=== PATIENT | female | born 1945 | race Caucasian/White ===

== ENCOUNTER → 2017-06-05 | Outpatient (CLI) | payer MEDICARE ==
[~2017-06-05] MED LIST: ASPI-555 PO; CALC-1038 PO; IBUP-2353 PO; MULT-961 PO; OMEG1CAP6 PO; SIMV40TA2 PO
== END | disposition home or self-care (01) ==
LOC: RAH 09:37
PROVIDERS: ATTEND Family Medicine
DX: R92.8 Other abnormal and inconclusive findings on diagnostic imaging of breast (principal); Z85.3 Personal history of malignant neoplasm of breast
CPT/HCPCS: 77065

== ENCOUNTER → 2018-05-26 | Outpatient (CLI) | payer MEDICARE ==
[~2018-05-26] MED LIST changes: -MULT-961 PO; +MULT-965 PO
== END | disposition home or self-care (01) ==
LOC: RAH 07:49
PROVIDERS: ATTEND Internal Medicine Medical Oncology
DX: R92.8 Other abnormal and inconclusive findings on diagnostic imaging of breast (principal); Z85.3 Personal history of malignant neoplasm of breast; Z90.11 Acquired absence of right breast and nipple
CPT/HCPCS: 77065

== ENCOUNTER 2018-10-27 15:29 | Emergency (ER) | payer MEDICARE ==
[2018-10-27 16:29] LABS: BASOPHILS % (AUTO) 0.8 % (0.0-5.0); EOSINOPHILS % (AUTO) 2.6 % (0.0-8.0); HEMATOCRIT 36.2 % (36-48); LYMPHOCYTES % (AUTO) 31.6 % (21.0-51.0); MEAN CORPUSCULAR HEMOGLOBIN 32.1 pg (27.0-33.0); MEAN CORPUSCULAR HGB CONC 34.4 g/dL (32.0-36.0); MEAN CORPUSCULAR VOLUME 93.3 fL (79-99); MONOCYTES % (AUTO) 5.7 % (3.0-13.0); NEUTROPHILS % (AUTO) 59.3 % (40.0-77.0); PLATELET COUNT (AUTO) 268 K/uL (130-400); RED BLOOD CELL COUNT(AUTO) 3.88 MIL/uL (4.00-5.50); RED CELL DISTRIBUTION WIDTH 12.2 % (11.0-15.5); WHITE BLOOD COUNT (AUTO) 6.2 K/uL (4.8-10.8)
[2018-10-27 16:41] LABS: CARBON DIOXIDE 29 mmol/L (21-32); CHLORIDE 106 mmol/L (101-111); CREATININE 0.7 mg/dL (0.5-1.5); GLOMERULAR FILTR. RATE CALC 88 mL/min (>60); GLUCOSE,RANDOM 116 mg/dL (70-105); POTASSIUM 3.6 mmol/L (3.5-5.1); SODIUM SERUM 141 mmol/L (136-145); UREA NITROGEN, BLOOD 15 mg/dL (7-18)
[2018-10-27 16:43] LABS: INR 0.93 (0.85-1.15); PARTIAL THROMBOPLASTIN TIME 25.7 SEC (26.3-35.5); PROTHROMBIN TIME 9.8 SEC (9.6-11.6)
[2018-10-27 16:51] LABS: ALANINE AMINOTRANSFERASE 23 U/L (12-78); ALBUMIN 3.7 g/dL (3.5-5.0); ASPARTATE AMINOTRANSFERASE 18 U/L (10-37); BILIRUBIN,TOTAL 0.4 mg/dL (0.2-1.0); HCG,QUANTITATIVE 3 mIU/mL (0-5); TOTAL PROTEIN, SERUM 7.2 g/dL (6.0-8.3)
[2018-10-27 16:55] LABS: CRP QUANTITATIVE < 2.00 mg/L (0.00-9.0)
[2018-10-27] MEDS ORDERED: DEXAMETHASONE SOD PHOSPHATE 4 MG/ML 1ML VIAL ONE (17:30)
[2018-10-27 18:12] LABS: ERYTHROCYTE SEDIMENTATION RATE 20 MM/HR (0-30)
== END 2018-10-27 18:59 | disposition home or self-care (01) ==
LOC: EDH 15:29
DX: M17.11 Unilateral primary osteoarthritis, right knee (principal); M19.011 Primary osteoarthritis, right shoulder; E78.00 Pure hypercholesterolemia, unspecified; Z85.3 Personal history of malignant neoplasm of breast
CPT/HCPCS: 36415; 73030; 73562; 80053; 84702; 85025; 85378; 85610; 85651; 85730; 86140; 93971; 96372; 99285; J1100

== ENCOUNTER 2019-01-30 13:57 | Inpatient (IN) | payer MEDICARE ==
[~2019-01-30] VITALS: Ht 162.6 cm; Wt 67.3 kg
[~2019-01-30 13:57] MED LIST changes: -IBUP-2353 PO; +IBUP-2784 PO
[2019-01-30 14:44] LABS: BASOPHILS % (AUTO) 0.8 % (0.0-5.0); EOSINOPHILS % (AUTO) 2.6 % (0.0-8.0); HEMATOCRIT 36.8 % (36-48); LYMPHOCYTES % (AUTO) 25.1 % (21.0-51.0); MEAN CORPUSCULAR HEMOGLOBIN 32.3 pg (27.0-33.0); MEAN CORPUSCULAR HGB CONC 34.5 g/dL (32.0-36.0); MEAN CORPUSCULAR VOLUME 93.6 fL (79-99); MONOCYTES % (AUTO) 6.6 % (3.0-13.0); NEUTROPHILS % (AUTO) 64.9 % (40.0-77.0); NUCLEATED RED BLOOD CELLS 0.1 % (0.0-0.19); PLATELET COUNT (AUTO) 271 K/uL (130-400); RED BLOOD CELL COUNT(AUTO) 3.93 MIL/uL (4.00-5.50); RED CELL DISTRIBUTION WIDTH 12.2 % (11.0-15.5); WHITE BLOOD COUNT (AUTO) 7.2 K/uL (4.8-10.8)
[2019-01-30] MEDS ORDERED: ONDANSETRON HCL 4 MG/2 ML VIAL ONE ×2 (14:49→21:59)
[2019-01-30] MEDS ORDERED: SODIUM CHLORIDE 0.9% 500ML 500 ML IV ONE (14:49)
[2019-01-30 14:52] LABS: CREATININE 0.7 mg/dL (0.5-1.5); POTASSIUM 3.9 mmol/L (3.5-5.1)
[2019-01-30 14:55] LABS: INR 0.97 (0.85-1.15); PARTIAL THROMBOPLASTIN TIME 25.2 SEC (26.3-35.5); PROTHROMBIN TIME 10.2 SEC (9.6-11.6)
[2019-01-30 14:56] LABS: ALBUMIN 3.8 g/dL (3.5-5.0); BILIRUBIN,DIRECT 0.2 mg/dL (0.0-0.3); BILIRUBIN,TOTAL 0.7 mg/dL (0.2-1.0); TOTAL PROTEIN, SERUM 7.5 g/dL (6.0-8.3)
[2019-01-30] MEDS ORDERED: SODIUM CHLORIDE 0.9% 1000ML 1,000 ML IV ONE (16:43)
[2019-01-30 18:19] LABS: APPEARANCE,URINE Clear (CLEAR); BILIRUBIN,URINE Negative (NEGATIVE); COLOR,URINE Yellow (YELLOW); GLUCOSE, URINE (UA) Negative (NEGATIVE); KETONES,URINE Negative (NEGATIVE); LEUKOCYTE ESTERASE ,URINE Negative (NEGATIVE); NITRATE,URINE Negative (NEGATIVE); OCCULT BLOOD,URINE Negative (NEGATIVE); PROTEIN,URINE Negative (NEGATIVE); UROBILINOGEN,URINE 0.2 mg/dL (0.2-1.0)
[2019-01-30] MEDS: SODIUM CHLORIDE 0.9% 1000ML 1,000 ML IV SCH (18:31)
[2019-01-30] MEDS ORDERED: HYDRALAZINE HCL 20 MG/ML VIAL IV PRN (18:45)
[2019-01-30 20:43] VITALS: BP 135/77
[2019-01-30] MEDS ORDERED: FAMOTIDINE/PF 20 MG/2 ML VIAL IV SCH (21:00)
[2019-01-30] MEDS ORDERED: PANTOPRAZOLE 40 MG/VIAL IVP SCH (21:00)
[2019-01-30] MEDS ORDERED: KETOROLAC TROMETHAMINE 30MG/ML IV PRN (22:00)
[2019-01-30] MEDS ORDERED: ONDANSETRON HCL 4 MG/2 ML VIAL IVP PRN (22:00)
[2019-01-30 23:00] VITALS: BP 113/79
[2019-01-31] VITALS (19 sets, daily range): BP systolic 107–175; BP diastolic 51–88
[2019-01-31] MEDS: SODIUM CHLORIDE 0.9% 1000ML 1,000 ML IV SCH ×2 (03:34→14:31)
[2019-01-31 05:33] LABS: BASOPHILS % (AUTO) 0.9 % (0.0-5.0); EOSINOPHILS % (AUTO) 3.4 % (0.0-8.0); HEMATOCRIT 35.7 % (36-48); LYMPHOCYTES % (AUTO) 35.5 % (21.0-51.0); MEAN CORPUSCULAR HEMOGLOBIN 31.6 pg (27.0-33.0); MEAN CORPUSCULAR VOLUME 92.9 fL (79-99); MONOCYTES % (AUTO) 7.8 % (3.0-13.0); NEUTROPHILS % (AUTO) 52.4 % (40.0-77.0); PLATELET COUNT (AUTO) 304 K/uL (130-400); RED BLOOD CELL COUNT(AUTO) 3.85 MIL/uL (4.00-5.50); RED CELL DISTRIBUTION WIDTH 12.3 % (11.0-15.5); WHITE BLOOD COUNT (AUTO) 6.3 K/uL (4.8-10.8)
[2019-01-31 06:11] LABS: ALBUMIN 3.7 g/dL (3.5-5.0); BILIRUBIN,TOTAL 1.2 mg/dL (0.2-1.0); CREATININE 0.7 mg/dL (0.5-1.5); POTASSIUM 3.6 mmol/L (3.5-5.1); TOTAL PROTEIN, SERUM 7.3 g/dL (6.0-8.3)
[2019-01-31] MEDS ORDERED: FAMOTIDINE/PF 20 MG/2 ML VIAL IV SCH (09:00)
--- NOTE | 2019-01-31 11:00 | NUR ---
TO . GI LAB, WITH STAFF AT THE BEDSIDE. PT HAD BEEN NPO FOR THIS PROCEDURE.
[2019-01-31] MEDS ORDERED: MEPERIDINE-PF 50 MG/ML SYG ONE (11:07)
[2019-01-31] MEDS ORDERED: MIDAZOLAM HCL 1 MG/ML 2ML VIAL ONE (11:08)
--- NOTE | 2019-01-31 12:30 | NUR ---
POSTOP V/S STARTED , . PT AAO X 3 REVIEW ORDERS AND FULL LIQ DIET ORDER . AND CALL LIGHT IN REACH .,DENIES ANY NAUSEA. HOB U.P AND AT THE BEDSIDE ..
--- NOTE | 2019-01-31 15:00 | NUR ---
INITIAL: Met w pt and spouse this afternoon to discuss dcp. Prior to admission pt was living w spouse. She is independent w ambulation. She has a nebulizer avail if needed. Per pt she feels safe and comfortable to return home at wa. CM to continue to follow and wait for Md recommendations. Addendum: 01/31/19 at 1837 by TRISTIN AVALOS Amended: Links added.
--- NOTE | 2019-01-31 15:44 | NUR ---
RD Notification Pt admitted for Dysphagia to Solids & Liquids. Pt with Hx of Esophageal mass, as well as dilatation. Currently pending [employer] evaluation. Pt with Nausea as per EMR. RD recommend altered means of nutrition upon [employer] evaluation. Pt LBM 01/30/19. Pt monitored labs: T. Bili 1.2, Lipase 99. RD to continue to monitor. Please notify RD as additional nutrition concerns arise. Thank you. Addendum: 01/31/19 at [address] RD Amended: Links added.
[2019-01-31] MEDS ORDERED: PANT40TA25 PO (16:25)
--- NOTE | 2019-01-31 18:20 | NUR ---
DISCHARGE SUMMARY RE VEIW WITH PT. REGARDING. . DISCHARGE ORDERS AND FOLLOWUP CARE SL TO HER LAC ,WAS DC WITH NO HEMATOMA . OR DRSG APPLICATION ON . TOLERATE WELL
== END 2019-01-31 18:25 | disposition home or self-care (01) | DRG 392 ==
LOC: EDH 13:57 → 3DH 18:32
PROVIDERS: ADMIT Internal Medicine; ATTEND Internal Medicine
PROC: 0DB38ZX Excision of Lower Esophagus, Via Natural or Artificial Opening Endoscopic, Diagnostic (ICD-10-PCS; principal; 2019-01-31)
PROC: 0DB68ZX Excision of Stomach, Via Natural or Artificial Opening Endoscopic, Diagnostic (ICD-10-PCS; 2019-01-31)
PROC: 0DB28ZX Excision of Middle Esophagus, Via Natural or Artificial Opening Endoscopic, Diagnostic (ICD-10-PCS; 2019-01-31)
PROC: 0DC28ZZ Extirpation of Matter from Middle Esophagus, Via Natural or Artificial Opening Endoscopic (ICD-10-PCS; 2019-01-31)
DX: K22.2 Esophageal obstruction (principal); T18.128A Food in esophagus causing other injury, initial encounter; K29.50 Unspecified chronic gastritis without bleeding; I10 Essential (primary) hypertension; K29.70 Gastritis, unspecified, without bleeding; Z85.3 Personal history of malignant neoplasm of breast; Y92.89 Other specified places as the place of occurrence of the external cause; Z98.82 Breast implant status; Z83.3 Family history of diabetes mellitus; Z82.5 Family history of asthma and other chronic lower respiratory diseases; Z82.49 Family history of ischemic heart disease and other diseases of the circulatory system; Z82.0 Family history of epilepsy and other diseases of the nervous system; Z80.3 Family history of malignant neoplasm of breast
CPT/HCPCS: 36415; 43239; 43247; 71250; 80048; 80053; 80076; 81003; 82550; 83690; 84484; 85025; 85610; 85730; 93005; 99152; 99153; C9113; G0378; J1885; J2175; J2250; J2405; J3490; J7030; J7040

== ENCOUNTER → 2019-05-27 | Outpatient (CLI) | payer MEDICARE ==
[~2019-05-27] MED LIST changes: -ASPI-555 PO; -CALC-1038 PO; -IBUP-2784 PO; -MULT-965 PO; -OMEG1CAP6 PO; +PANT40TA25 PO; -SIMV40TA2 PO
== END | disposition home or self-care (01) ==
LOC: RAH 07:41
PROVIDERS: ATTEND Family Medicine
DX: R92.2 Inconclusive mammogram (principal); Z85.3 Personal history of malignant neoplasm of breast; Z90.11 Acquired absence of right breast and nipple
CPT/HCPCS: 77065

== ENCOUNTER 2019-06-02 16:00 | Inpatient (IN) | payer MEDICARE ==
[~2019-06-02] VITALS: Ht 165.1 cm; Wt 68.9 kg
[2019-06-02 15:54] VITALS: BP 138/56
[2019-06-02 15:59] LABS: BASOPHILS % (AUTO) 0.7 % (0.0-5.0); EOSINOPHILS % (AUTO) 2.3 % (0.0-8.0); HEMATOCRIT 36.2 % (36-48); LYMPHOCYTES % (AUTO) 34.3 % (21.0-51.0); MEAN CORPUSCULAR HEMOGLOBIN 30.8 pg (27.0-33.0); MEAN CORPUSCULAR HGB CONC 33.1 g/dL (32.0-36.0); MEAN CORPUSCULAR VOLUME 93.1 fL (79-99); MONOCYTES % (AUTO) 6.9 % (3.0-13.0); NEUTROPHILS % (AUTO) 55.5 % (40.0-77.0); PLATELET COUNT (AUTO) 280 K/uL (130-400); RED BLOOD CELL COUNT(AUTO) 3.89 MIL/uL (4.00-5.50); RED CELL DISTRIBUTION WIDTH 12.2 % (11.0-15.5); WHITE BLOOD COUNT (AUTO) 6.9 K/uL (4.8-10.8)
[2019-06-02] MEDS ORDERED: SIMV40TA59 PO (16:16)
[2019-06-02] MEDS ORDERED: CALC-909 PO (16:17)
[2019-06-08] VITALS (22 sets, daily range): BP systolic 54–142; BP diastolic 52–86
[2019-06-08] MEDS: CEFAZOLIN SODIUM 1 GM VIAL IVP SCH ×3 (09:30→20:35)
[2019-06-08] MEDS ORDERED: LACTATED RINGERS 1000ML 1,000 ML IV ONE (09:40)
[2019-06-08] MEDS ORDERED: TRANEXAMIC ACID 1000MG/10ML ONE (09:53)
[2019-06-08] MEDS ORDERED: MIDAZOLAM HCL 1 MG/ML 2ML VIAL ONE (11:28)
[2019-06-08] MEDS ORDERED: DEXAMETHASONE SOD PHOSPHATE 10MG/ML 1ML VIAL ONE (11:28)
[2019-06-08] MEDS ORDERED: ONDANSETRON HCL 4 MG/2 ML VIAL ONE (11:28)
[2019-06-08] MEDS ORDERED: PROPOFOL 10 MG/ML 20ML VIAL IV ONE (11:28)
[2019-06-08] MEDS ORDERED: LIDOCAINE PF 2% 5ML ABBOJECT ONE (11:28)
[2019-06-08] MEDS ORDERED: FENTANYL CITRATE PF 50 MCG/1 ML 5ML AMP IV ONE (11:29)
[2019-06-08] MEDS ORDERED: ROCURONIUM 10MG/1ML SYR 10 MG/ML ML ONE (11:29)
[2019-06-08] MEDS ORDERED: ROPIVACAINE 0.5% 5MG/ML 30ML IJ ONE (11:32)
[2019-06-08] MEDS ORDERED: EPHEDRINE SULFATE 50 MG/ML AMPULE ONE (11:52)
[2019-06-08] MEDS ORDERED: GLYCOPYRROLATE 1 MG/5 ML SYRINGE ONE (13:31)
[2019-06-08] MEDS ORDERED: NEOSTIGMINE 5MG/5ML SYR IV ONE (13:31)
[2019-06-08] MEDS: SODIUM CHLORIDE 0.9% 1000ML 1,000 ML IV SCH ×2 (13:44→23:31)
[2019-06-08] MEDS: ACETAMINOPHEN EXTRA STRENGTH 500 MG TABLET PO SCH ×2 (13:45→20:34)
[2019-06-08] MEDS ORDERED: TRAMADOL HCL 50 MG TABLET PO PRN (13:45)
[2019-06-08] MEDS ORDERED: MORPHINE SULFATE 4 MG/1ML SYG IVP PRN (13:45)
[2019-06-08] MEDS ORDERED: ONDANSETRON HCL 4 MG/2 ML VIAL IVP PRN (13:45)
--- NOTE | 2019-06-08 14:50 | NUR ---
REPORT RECEIVED FROM CHRIS RN (PACU). PATIENT S/P RIGHT TKA BY DR. PEPE. GENERAL ANESTHESIA WITH BLOCK. DIEGO DRESSING DRY AND INTACT. TEDS/SCDS ON TO NON-OPERATIVE EXTREMITY. RIGHT LIMB ALERT DUE TO RIGHT MASTECTOMY. PATIENT AAOX3, STABLE AT THIS TIME.
--- NOTE | 2019-06-08 16:30 | NUR ---
CALL TO MD OFFICE SPOKE WITH ERIKA- NOTES ON FILE STATES MD OFFICE HAS SET UP OUT PATIENT REHAB WITH [facility], 'SAME LAST SURGERY' SHE DID NOT HAVE AN APPOINTMENT YET. WILL FOLLOW WITH PT IN AM RE BHARAT TO SENT OPERATIVE INFO. Addendum: 06/09/19 at 1449 by JANET RAMEY RN CM Amended: Links added.
[2019-06-08] MEDS: CELECOXIB 200 MG CAP PO SCH (20:33)
[2019-06-08] MEDS: SIMVASTATIN 20 MG TABLET PO SCH (20:33)
[2019-06-08] MEDS: ASPIRIN 81 MG EC TAB PO SCH (20:33)
--- NOTE | 2019-06-08 21:08 | NUR ---
ACTIVITY PT SAT ON EDGE OF BED AND DANGLED FEET FOR A COUPLE OF MINUTES. CONTINUES TO FEEL THE EFFECTS OF THE NERVE BLOCK TO THE RIGHT LEG, NO C/O PAIN AT THIS TIME. WILL CONTINUE TO MONITOR.
[2019-06-09] VITALS (8 sets, daily range): BP systolic 79–120; BP diastolic 47–62
[2019-06-09] MEDS: OXYCODONE HCL 5 MG TAB PO PRN ×4 (02:24→23:26)
[2019-06-09] MEDS: ACETAMINOPHEN EXTRA STRENGTH 500 MG TABLET PO SCH ×3 (03:57→19:44)
[2019-06-09] MEDS: CEFAZOLIN SODIUM 1 GM VIAL IVP SCH (03:57)
[2019-06-09 05:07] LABS: HEMATOCRIT 26.7 % (36-48); MEAN CORPUSCULAR HEMOGLOBIN 30.6 pg (27.0-33.0); MEAN CORPUSCULAR HGB CONC 33.3 g/dL (32.0-36.0); MEAN CORPUSCULAR VOLUME 91.8 fL (79-99); PLATELET COUNT (AUTO) 183 K/uL (130-400); RED BLOOD CELL COUNT(AUTO) 2.91 MIL/uL (4.00-5.50); RED CELL DISTRIBUTION WIDTH 12.3 % (11.0-15.5); WHITE BLOOD COUNT (AUTO) 8.4 K/uL (4.8-10.8)
[2019-06-09 05:26] LABS: CREATININE 0.6 mg/dL (0.5-1.5); POTASSIUM 3.3 mmol/L (3.5-5.1)
--- NOTE | 2019-06-09 08:43 | NUR ---
Limited gait distance this AM due to feeling nauseated.BP is at 79/44. Patient was placed back in bed and re-check BP is at 103/55.KAYCE Gilmore notified. Addendum: 06/09/19 at 0845 by DWAYNE PARTIDA, PT PT Amended: Links added.
[2019-06-09] MEDS: ASPIRIN 81 MG EC TAB PO SCH ×2 (08:54→19:43)
[2019-06-09] MEDS: CELECOXIB 200 MG CAP PO SCH ×2 (08:55→19:43)
[2019-06-09] MEDS: POLYETHYLENE GLYCOL 3350 17 GM POWD.PACK PO SCH (08:55)
[2019-06-09] MEDS ORDERED: CALCIUM 600 + VITAMIN D 400 TABLET PO SCH (09:00)
[2019-06-09] MEDS: SODIUM CHLORIDE 0.9% 1000ML 1,000 ML IV SCH (09:44)
[2019-06-09] MEDS ORDERED: MAGNESIUM 2GM PREMIX 50ML 50 ML IV PRN (15:15)
[2019-06-09] MEDS: POTASSIUM CHLORIDE 20 MEQ ERTAB PO PRN ×2 (16:01→23:51)
--- NOTE | 2019-06-09 17:00 | NUR ---
INITIAL CM NOTE Met w patient and spouse for the purposes of discharge planning. Lives w spouse Tripp who will provide transport home. Patient is independent, no dme, drives, has no previous problem with stairs ; bought a walker for the surgery already, spouse states patient has an appointment w [facility] on [facility]15. will follow. Dr. Woo's nurse at [facility]- pt has not been moving sell- possible of [facility]; will follow Addendum: 06/10/19 at 1158 by JANET RAMEY RN CM Amended: Links added.
[2019-06-09] MEDS: SIMVASTATIN 20 MG TABLET PO SCH (19:43)
[2019-06-10 04:01] VITALS: BP 107/53
[2019-06-10 04:28] LABS: MAGNESIUM 2.1 mg/dL (1.80-2.40); POTASSIUM 3.7 mmol/L (3.5-5.1)
[2019-06-10] MEDS: OXYCODONE HCL 5 MG TAB PO PRN ×4 (04:38→22:08)
[2019-06-10] MEDS: ACETAMINOPHEN EXTRA STRENGTH 500 MG TABLET PO SCH ×3 (04:38→19:26)
[2019-06-10] MEDS: POTASSIUM CHLORIDE 20 MEQ ERTAB PO PRN ×2 (06:35→16:36)
[2019-06-10 08:12] VITALS: BP 109/49
[2019-06-10] MEDS: CELECOXIB 200 MG CAP PO SCH ×2 (08:19→19:26)
[2019-06-10] MEDS: ASPIRIN 81 MG EC TAB PO SCH ×2 (08:19→19:26)
[2019-06-10] MEDS: POLYETHYLENE GLYCOL 3350 17 GM POWD.PACK PO SCH (08:19)
[2019-06-10 11:26] VITALS: BP 124/56
--- NOTE | 2019-06-10 15:48 | NUR ---
NOTIFIED ERIKA FROM DR. GOMEZ'S OFFICE TO NOTIFY OF PT/FAMILY REQUEST FOR REHAB AND NOT GO HOME. ERIKA SAID SHE WILL SEND MESSAGE TO [facility] TO NOTIFY. PROVIDED WITH CALL BACK NUMBER TO UPDATE WITH ANY NEW ORDERS.
[2019-06-10 16:36] VITALS: BP 101/61
[2019-06-10 19:14] VITALS: BP 135/73
[2019-06-10] MEDS: SIMVASTATIN 20 MG TABLET PO SCH (19:26)
[2019-06-10 23:29] VITALS: BP 146/66
[2019-06-11 03:38] VITALS: BP 120/60
[2019-06-11] MEDS: ACETAMINOPHEN EXTRA STRENGTH 500 MG TABLET PO SCH ×3 (05:52→19:58)
[2019-06-11 08:00] VITALS: BP 131/64
[2019-06-11] MEDS: OXYCODONE HCL 5 MG TAB PO PRN ×2 (08:15→12:24)
[2019-06-11] MEDS: CELECOXIB 200 MG CAP PO SCH ×2 (08:45→19:58)
[2019-06-11] MEDS: ASPIRIN 81 MG EC TAB PO SCH ×2 (08:45→19:58)
[2019-06-11] MEDS: POLYETHYLENE GLYCOL 3350 17 GM POWD.PACK PO SCH (08:45)
[2019-06-11 12:00] VITALS: BP 130/62
[2019-06-11] MEDS ORDERED: BISACODYL 10 MG SUPP.RECT RC PRN (13:45)
[2019-06-11 16:00] VITALS: BP 120/61
--- NOTE | 2019-06-11 19:15 | NUR ---
DISCHARGE PATIENT GIVEN DISCHARGE INSTRUCTIONS VIA TEACH BACK. 20G PIV TO LFA DISCONTINUED, TIP INTACT. PATIENT TO TRANSFER TO [facility] TODAY. REPORT GIVEN TO JAMI AGRAWAL LVN. FOLLOW UP APPOINTMENT WITH DR. GOMEZ TO BE SET UP BY [facility] POST DISCHARGE IN 1 TO 2 WEEKS. DRESSING TO RIGHT KNEE TO BE REMOVED ON 06/16/19. RX FOR PAIN MEDICATIONS GIVEN TO PATIENT PRIOR TO ADMISSION TO HOSPITAL. PATIENT'S SPOUSE TO DELIVER THE PAIN MED TRAMADOL TO [facility]. PATIENT/SPOUSE AWARE AND VOICED UNDERSTANDING. Addendum: 06/11/19 at 2008 by NEREIDA GAN LVN LVN [facility] TO TRANSPORT PATIENT TO REHAB TODAY. AWAITING TRANSPORTER. REPORT GIVEN TO KAYCE GARCIA.
[2019-06-11] MEDS: SIMVASTATIN 20 MG TABLET PO SCH (19:58)
[2019-06-11 20:12] VITALS: BP 126/64
--- NOTE | 2019-06-11 20:35 | NUR ---
DISCHARGE [facility] IN TO TAKE PT VIA WHEELCHAIR. PT AWAKE, ALERT AND VERBALLY RESPONSIVE. NO C/O PAIN OR DISCOMFORT AT THIS TIME. DIEGO DRESSING CHANGED BEFORE DISCHARGE, DRY AND INTACT. IV CATHETER DISCONTINUED BY PREVIOUS SHIFT. PAPERWORK GIVEN TO WIRE TWISTING MACHINE OPERATOR, ALL PT BELONGINGS RETURNED TO PT.
== END 2019-06-11 20:35 | DRG 470 ==
LOC: EDSTATUS 16:00 → DAHIP 06-08 09:18 → 4AH 06-08 14:14
PROVIDERS: ADMIT Orthopaedic Surgery; ATTEND Orthopaedic Surgery
PROC: 0SRC0JZ Replacement of Right Knee Joint with Synthetic Substitute, Open Approach (ICD-10-PCS; principal; 2019-06-08 12:11)
DX: M17.11 Unilateral primary osteoarthritis, right knee (principal); E83.42 Hypomagnesemia; E87.6 Hypokalemia; M65.9 Synovitis and tenosynovitis, unspecified; M24.561 Contracture, right knee; M24.562 Contracture, left knee
CPT/HCPCS: 36415; 80048; 83735; 84132; 85025; 85027; 86850; 86900; 86901; 88305; 88311; 97039; G0378; J0690; J1100; J2001; J2250; J2270; J2405; J2704; J2710; J2795; J3010; J3475; J3490; J7030; J7120

== ENCOUNTER 2019-06-16 13:29 | Emergency (ER) | payer MEDICARE ==
[~2019-06-16 13:29] MED LIST changes: +CALC-909 PO; -PANT40TA25 PO; +SIMV40TA59 PO
[2019-06-16 13:53] LABS: BASOPHILS % (AUTO) 0.6 % (0.0-5.0); EOSINOPHILS % (AUTO) 0.2 % (0.0-8.0); HEMATOCRIT 30.9 % (36-48); LYMPHOCYTES % (AUTO) 12.3 % (21.0-51.0); MEAN CORPUSCULAR HEMOGLOBIN 30.1 pg (27.0-33.0); MEAN CORPUSCULAR HGB CONC 32.7 g/dL (32.0-36.0); MONOCYTES % (AUTO) 2.3 % (3.0-13.0); NEUTROPHILS % (AUTO) 83.8 % (40.0-77.0); PLATELET COUNT (AUTO) 420 K/uL (130-400); RED BLOOD CELL COUNT(AUTO) 3.36 MIL/uL (4.00-5.50); RED CELL DISTRIBUTION WIDTH 12.5 % (11.0-15.5); WHITE BLOOD COUNT (AUTO) 8.4 K/uL (4.8-10.8)
[2019-06-16] MEDS ORDERED: KETOROLAC TROMETHAMINE 15MG/ML ONE (13:57)
[2019-06-16] MEDS ORDERED: SODIUM CHLORIDE 0.9% 1000ML 1,000 ML IV ONE (13:57)
[2019-06-16 14:03] LABS: CREATININE 0.8 mg/dL (0.5-1.5); POTASSIUM 3.8 mmol/L (3.5-5.1)
[2019-06-16 14:07] LABS: ALBUMIN 3.6 g/dL (3.5-5.0); TOTAL PROTEIN, SERUM 8.1 g/dL (6.0-8.3)
[2019-06-16] MEDS ORDERED: PROPOFOL 10 MG/ML 20ML VIAL IV ONE (14:54)
[2019-06-16] MEDS ORDERED: LIDOCAINE PF 2% 5ML ABBOJECT ONE (14:56)
[2019-06-16] MEDS ORDERED: ROCURONIUM 10MG/1ML SYR 10 MG/ML ML ONE (14:56)
== END 2019-06-16 17:31 | disposition home or self-care (01) ==
LOC: EDH 13:29
DX: K22.2 Esophageal obstruction (principal); T18.128A Food in esophagus causing other injury, initial encounter
CPT/HCPCS: 36415; 43247; 80053; 83690; 85025; 96374; 99283; A4620; J1885; J2001; J2704; J7030

== ENCOUNTER → 2020-05-29 | Outpatient (CLI) | payer MEDICARE | END | disposition home or self-care (01) | LOC: RAH 09:35 | PROVIDERS: ATTEND Family Medicine | DX: Z90.11 Acquired absence of right breast and nipple (principal); Z85.3 Personal history of malignant neoplasm of breast | CPT/HCPCS: 77065 ==

== ENCOUNTER → 2021-08-13 | Outpatient (CLI) | payer MEDICARE ==
[2021-08-13 08:36] LABS: INR 0.94 (0.85-1.15); PROTHROMBIN TIME 10.3 SEC (9.6-11.6)
[2021-08-13 08:38] LABS: PARTIAL THROMBOPLASTIN TIME 26.3 SEC (26.3-35.5)
== END | disposition home or self-care (01) ==
LOC: RAH 07:32
PROVIDERS: ATTEND Family Medicine
DX: N60.02 Solitary cyst of left breast (principal); C50.911 Malignant neoplasm of unspecified site of right female breast; Z85.3 Personal history of malignant neoplasm of breast
CPT/HCPCS: 36415; 76642; 85610; 85730

== ENCOUNTER → 2022-04-02 | Outpatient (CLI) | payer MEDICARE | END | disposition home or self-care (01) | LOC: RAH 08:46 | PROVIDERS: ATTEND Family Medicine | DX: N60.02 Solitary cyst of left breast (principal); Z85.3 Personal history of malignant neoplasm of breast | CPT/HCPCS: 77065 ==

== ENCOUNTER 2022-11-28 13:36 | Emergency (ER) | payer MEDICARE ==
[~2022-11-28] VITALS: Ht 162.6 cm; Wt 70.8 kg
[~2022-11-28 13:36] MED LIST changes: +DOCU100C33 PO; +SIMV-46 PO; -SIMV40TA59 PO; +SULF1TAB42 PO; +TRAM50TA4 PO
[2022-11-28 15:31] LABS: BASOPHILS # (AUTO) 0.04 K/uL (0.00-0.20); BASOPHILS % (AUTO) 0.7 % (0.0-5.0); EOSINOPHILS # (AUTO) 0.12 K/uL (0.00-0.70); HEMATOCRIT 38.5 % (36-48); IMMATURE GRANULOCYTE ABSOLUTE 0.02 K/uL (0-1); LYMPHOCYTES # (AUTO) 1.9 K/uL (1.0-4.8); LYMPHOCYTES % (AUTO) 31.4 % (21.0-51.0); MEAN CORPUSCULAR HEMOGLOBIN 31.6 pg (27.0-33.0); MEAN CORPUSCULAR HGB CONC 32.7 g/dL (32.0-36.0); MEAN CORPUSCULAR VOLUME 96.5 fL (79-99); MONOCYTES # (AUTO) 0.4 K/uL (0.1-1.0); MONOCYTES % (AUTO) 6.3 % (3.0-13.0); NEUTROPHILS # (AUTO) 3.6 K/uL (1.8-7.7); NEUTROPHILS % (AUTO) 59.3 % (40.0-77.0); PLATELET COUNT (AUTO) 276 K/uL (130-400); RED BLOOD CELL COUNT(AUTO) 3.99 MIL/uL (4.00-5.50); RED CELL DISTRIBUTION WIDTH 12.3 % (11.0-15.5)
[2022-11-28 15:41] LABS: INR < 0.93 (0.85-1.15); PROTHROMBIN TIME 10.6 SEC (9.6-11.6)
[2022-11-28 15:43] LABS: PARTIAL THROMBOPLASTIN TIME 26.8 SEC (26.3-35.5)
[2022-11-28 15:46] LABS: ALBUMIN 3.9 g/dL (3.5-5.0); BILIRUBIN,TOTAL 0.7 mg/dL (0.2-1.0); CREATININE 0.7 mg/dL (0.5-1.5); POTASSIUM 3.8 mmol/L (3.5-5.1)
[2022-11-28] MEDS ORDERED: METOCLOPRAMIDE 10 MG/2 ML VIAL IVP STA (16:00)
[2022-11-28] MEDS ORDERED: LIDOCAINE PF 100MG/5ML (2%) SYRINGE 5ML ONE (16:16)
[2022-11-28] MEDS ORDERED: SUCCINYLCHOLINE CHLORIDE 20 MG/ML 10 ML VIAL ONE (16:16)
[2022-11-28] MEDS ORDERED: PROPOFOL 10 MG/ML 20ML VIAL IV ONE (16:17)
[2022-11-28] MEDS ORDERED: FENTANYL CITRATE PF 50 MCG/1 ML 2ML VIAL ONE ×2 (16:17→16:57)
[2022-11-28] MEDS ORDERED: CEFAZOLIN SODIUM 1 GM VIAL ONE (16:19)
[2022-11-28 16:20] VITALS: BP 170/75; PULSE 87; RESP 20
[2022-11-28] MEDS ORDERED: DEXAMETHASONE SOD PHOSPHATE 10MG/ML 1ML VIAL ONE (16:53)
[2022-11-28] MEDS ORDERED: ONDANSETRON 4MG INJ ONE (16:53)
[2022-11-28 17:44] VITALS: BP 147/69; PULSE 76; RESP 17; O2SAT 96
== END 2022-11-28 18:15 | disposition home or self-care (01) ==
LOC: EDH 13:36
DX: T18.108A Unspecified foreign body in esophagus causing other injury, initial encounter (principal); E78.00 Pure hypercholesterolemia, unspecified; Z79.52 Long term (current) use of systemic steroids; X58.XXXA Exposure to other specified factors, initial encounter; Y93.9 Activity, unspecified; Y92.89 Other specified places as the place of occurrence of the external cause; Y99.8 Other external cause status
CPT/HCPCS: 99284; 80053; 85025; 85610; 85730; 36415; 88305; 96374; 43239; 43247; J3010 ×2; J1100; J0330; J2001; J2704; J2405; J2765; A4215 ×2; A4223; A4657 ×3; A7002; A4222; A4221; A4663; A4216; J7030; A4606; J0690; J3490

== ENCOUNTER → 2023-04-03 | Outpatient (CLI) | payer MEDICARE | END | disposition home or self-care (01) | LOC: RAH 08:36 | PROVIDERS: ATTEND Family Medicine | DX: Z12.31 Encounter for screening mammogram for malignant neoplasm of breast (principal); Z85.3 Personal history of malignant neoplasm of breast; R92.332 Mammographic heterogeneous density, left breast | CPT/HCPCS: 76641; 77065 ==

== ENCOUNTER → 2023-10-03 | Outpatient (CLI) | payer MEDICARE | END | disposition home or self-care (01) | LOC: RAH 12:42 | PROVIDERS: ATTEND Family Medicine | DX: N63.24 Unspecified lump in the left breast, lower inner quadrant (principal); Z85.3 Personal history of malignant neoplasm of breast | CPT/HCPCS: 76641 ==

== ENCOUNTER → 2023-10-21 | Outpatient (CLI) | payer MEDICARE ==
[2023-10-21 08:28] LABS: INR 0.98 (0.85-1.15); PROTHROMBIN TIME 10.6 SEC (9.6-11.6)
[2023-10-21 08:29] LABS: PARTIAL THROMBOPLASTIN TIME 25.3 SEC (26.3-35.5)
== END | disposition home or self-care (01) ==
LOC: RAH 07:40
PROVIDERS: ATTEND Family Medicine
DX: N63.25 Unspecified lump in the left breast, overlapping quadrants (principal); E78.5 Hyperlipidemia, unspecified; M81.0 Age-related osteoporosis without current pathological fracture; M17.0 Bilateral primary osteoarthritis of knee; Z96.651 Presence of right artificial knee joint; Z79.899 Other long term (current) drug therapy; Z79.01 Long term (current) use of anticoagulants
CPT/HCPCS: 19083; 85610; 85730; 36415; 88305; A4215 ×2; A4648

== ENCOUNTER → 2024-09-07 | Outpatient (CLI) | payer MEDICARE ==
--- NOTE | 2024-09-08 09:38 | HMCIMG ---
Exam Type: MAMMO DX UNILATERAL LEFT Clinical Information: HX OF BREAST CA Comparison: None Technique: Mammogram with CAD was performed with CC and MLO projections. CAD shows no worrisome regions. FINDINGS: The breasts are extremely dense, which lowers the sensitivity of mammography. No dominant mass or suspicious microcalcification identified. There is no nipple retraction or skin thickening. Benign-appearing calcifications are seen. CAD shows no worrisome regions. IMPRESSION: 1. No mammographic signs of malignancy. 2. Routine follow-up recommended. CATEGORY 2: BENIGN FINDINGS Note: A negative x-ray should not delay biopsy if a dominant or clinically suspicious mass is present, since 8-10% of cancers are not identified by mammography. Dense breasts may obscure an underlying neoplasm. March 31, 2023
== END | disposition home or self-care (01) ==
LOC: RAH 10:32
PROVIDERS: ATTEND Family Medicine
DX: R92.342 Mammographic extreme density, left breast (principal); R92.1 Mammographic calcification found on diagnostic imaging of breast; Z85.3 Personal history of malignant neoplasm of breast
CPT/HCPCS: 77065

== ENCOUNTER 2024-11-15 15:31 | Emergency (ER) | payer MEDICARE ==
[~2024-11-15] VITALS: Ht 162.6 cm; Wt 68.0 kg
[2024-11-15 15:32] VITALS: TEMP 98.3
[2024-11-15 16:10] LABS: IMMATURE GRANULOCYTE ABSOLUTE 0.04 K/uL (0-1); NUCLEATED RED BLOOD CELLS 0.0 % (0.0-0.19); PLATELET COUNT (AUTO) 295 K/uL (130-400); RED BLOOD CELL COUNT(AUTO) 3.53 MIL/uL (4.00-5.50); RED CELL DISTRIBUTION WIDTH 12.4 % (11.0-15.5); WHITE BLOOD COUNT (AUTO) 10.4 K/uL (4.8-10.8)
[2024-11-15 16:18] LABS: CREATININE 0.6 mg/dL (0.5-1.0); GLOMERULAR FILTR. RATE CALC 92.0 mL/min (>90); GLUCOSE,RANDOM 121.0 mg/dL (70-105); SODIUM SERUM 141.0 mmol/L (136-145); UREA NITROGEN, BLOOD 11.0 mg/dL (7-18)
[2024-11-15] MEDS ORDERED: DOCU-116 PO (16:34)
[2024-11-15] MEDS ORDERED: HYDR25SU38 PR (16:34)
--- NOTE | 2024-11-15 16:36 | ERN ---
ED Note History of Present Illness Stated Complaint: ABD CRAMPING, BLOODY STOOLS Chief Complaint: Bloody Stool Time Seen by MD: 15:32 Time Seen by Midlevel: 15:36 Dictation: 59-YEAR-OLD FEMALE COMING IN FOR BLOOD IN STOOLS. PATIENT STATES SHE HAD A LA RGE BOWEL MOVEMENT THIS MORNING, AFTER THAT SHE SAID WHEN SHE WENT TO HAVE ANOTHER BOWEL MOVEMENT SHE FEELS LIKE WATER IS COMING OUT OF THE RECTAL. PATIENT STATES IT IS BLOOD. PATIENT STATES SHE DOES HAVE A HISTORY OF HEMORRHOIDS SINCE HE IS A GI FOR THIS AND ALSO HAD A COLONOSCOPY DONE TWO YEARS AGO WHERE THEY UPON A FEW POLYPS. Allergies: Coded Allergies: No Known Drug Allergies (Unverified Allergy, Unknown, 06/28/16) gluten (Unverified Allergy, Unknown, 06/02/19) lactose (Unverified Allergy, Unknown, 06/02/19) Home Meds Active Scripts Sulfamethoxazole/Trimethoprim (Bactrim Ds Tablet) 1 Each Tablet, 1 TAB PO BID, #14 TAB 0 Refills Prov:ADEBAYO DOVE 09/12/22 Docusate Sodium (Docusate Sodium) 100 Mg Capsule, 100 MG PO BID, #30 CAP 0 Refills Prov:ADEBAYO DOVEANAM 09/12/22 Tramadol Hcl (Tramadol HCl) 50 Mg Tablet, 50 MG PO Q6HPRN PRN for MODERATE PAIN (4-6), #24 TAB 0 Refills Prov:DERRELLADEBAYOLAYNE BROWNANAM 09/12/22 Reported Medications Simvastatin (Simvastatin) 40 Mg Tablet, 40 MG PO HS, TAB 09/11/22 Calcium Carbonate/Vitamin D3 (Calcium 600 + Vit D Caplet) 1 Each Tablet, 1 EACH PO DAILY, TAB 06/02/19 Past Medical History Past Medical History: High Cholesterol Additional Past Medical Hx: ESOPHAGEAL OBSTRUCTION, HPYLORI Surgical History: Other Surgical History Other: right mastectomy Family History: Negative Social History: Negative, Lives with family Review of System Dictation CONSTITUTIONAL: NEGATIVE FOR FEVER,CHILLS, AND WEIGHT LOSS EYES: NEGATIVE FOR INJURY, PAIN,REDNESS, AND DISCHARGE ENT: NEGATIVE FOR INJURY,PAIN OR SWELLING CARDIOVASCULAR: NEGATIVE FOR CHEST PAIN, PALPITATIONS, AND EDEMA RESPIRATORY: NEGATIVE FOR SHORTNESS OF BREATH, COUGH, AND WHEEZING, ABDOMEN/GI: NEGATIVE FOR ABDOMINAL PAIN, NAUSEA, VOMITING, DIARRHEA, AND CONSTIPATION, COMPLAINING OF BLOOD IN STOOL BACK: NEGATIVE FOR INJURY AND PAIN : NEGATIVE FOR INJURY, BLEEDING AND DISCHARGE MS/EXTREMITY: NEGATIVE FOR INJURY AND DEFORMITY SKIN: NEGATIVE FOR RASH, AND DISCOLORATION NEURO: NEGATIVE FOR HEADACHE, WEAKNESS, NUMBNESS, TINGLING, AND SEIZURE PSYCH: NEGATIVE FOR SUICIDE IDEATION, HOMICIDAL IDEATION, AND HALLUCINATIONS Review of Systems: was completed Initial Vital Sign VS Vital Signs Date Time Temp Pulse Resp B/P (MAP) Pulse Ox O2 Delivery O2 Flow Rate FiO2 11/15/24 15:32 98.2 84 16 152/78 95 Room Air 0 Physical Exam Dictation GENERAL: AWAKE, ALERT, NAD HEAD/FACE: NORMOCEPHALIC, ATRAUMATIC EYES: PERRL, EOMI, VISION AT BASELINE ENT: ORAL CAVITY CLEAR, TMS CLEAR, NO SIGNS OF INFECTION NECK: TRACHEA MIDLINE, SUPPLE, NO NUCHAL RIGIDITY CARDIOVASCULAR: RRR, NORMAL S1/S2, NO MRGS, NO JVD RESPIRATORY: CTAB, NO RESPIRATORY DISTRESS, NO RALES OR WHEEZES ABDOMEN: SOFT, NON-TENDER, NON-DISTENDED, NORMAL BOWEL SOUNDS, NO GUARDING OR REBOUND. SKIN: WARM, DRY, NORMAL TURGOR, NO RASH MS/EXTREMITY: PULSES EQUAL, NO CYANOSIS, NEUROVASCULAR INTACT, FROM NEURO: COAX4, GCS 15, STRENGTH 5/5, CN 2-12 INTACT, NORMAL CEREBELLAR EXAM, NORMAL GAIT, PSYCH: NORMAL BEHAVIOR, MOOD, AND AFFECT NORMAL RECTAL EXAM DONE WITH PRIMARY NURSE, AND ER MD AT BEDSIDE. LARGE INTERNAL HEMORRHOID, NONTHROMBOSED. Results (Laboratory/Radiology) Laboratory/Radiology Laboratory Tests Test 11/15/24 16:02 White Blood Count 10.4 K/uL (4.8-10.8) Red Blood Count 3.53 MIL/uL (4.00-5.50) L Hemoglobin 11.6 g/dL (12.0-16.0) L Hematocrit 33.4 % (36-48) L Mean Corpuscular Volume 94.6 fL (79-99) Mean Corpuscular Hemoglobin 32.9 pg (27.0-33.0) Mean Corpuscular Hemoglobin Concent 34.7 g/dL (32.0-36.0) Red Cell Distribution Width 12.4 % (11.0-15.5) Platelet Count 295 K/uL (130-400) Mean Platelet Volume 9.7 fL (7.5-10.5) Immature Granulocyte % (Auto) 0.4 % (0-1) Neutrophils (%) (Auto) 72.5 % (40.0-77.0) Lymphocytes (%) (Auto) 18.6 % (21.0-51.0) L Monocytes (%) (Auto) 6.8 % (3.0-13.0) Eosinophils (%) (Auto) 1.3 % (0.0-8.0) Basophils (%) (Auto) 0.4 % (0.0-5.0) Neutrophils # (Auto) 7.6 K/uL (1.8-7.7) Lymphocytes # (Auto) 1.9 K/uL (1.0-4.8) Monocytes # (Auto) 0.7 K/uL (0.1-1.0) Eosinophils # (Auto) 0.14 K/uL (0.00-0.70) Basophils # (Auto) 0.04 K/uL (0.00-0.20) Absolute Immature Granulocyte (auto 0.04 K/uL (0-1) Nucleated Red Blood Cells 0.0 % (0.0-0.19) Sodium Level 141 mmol/L (136-145) Potassium Level 3.9 mmol/L (3.5-5.1) Chloride Level 105 mmol/L (101-111) Carbon Dioxide Level 27 mmol/L (21-32) Blood Urea Nitrogen 11 mg/dL (7-18) Creatinine 0.6 mg/dL (0.5-1.0) Glomerular Filtration Rate Calc 92 mL/min (>90) Random Glucose 121 mg/dL (70-105) H Total Calcium 8.9 mg/dL (8.5-10.1) Labs Reviewed?: Yes ED Course ED Course Orders Procedure Category Date Status Time Hydrocortisone 25mg PHA 11/15/24 Complete Supp (Anusol-Hc 25mg 15:46 Cbc With Differential LAB 11/15/24 Complete 15:59 Basic Metabolic Panel LAB 11/15/24 Complete 15:59 Current Medications Medications (Trade) Dose Ordered Sig/Vira Route PRN Reason Start Time Stop Time Status Last Admin Dose Admin Hydrocortisone Acetate (anuSOL-HC 25MG SUPP) 1 supp ONCE STAT VT 11/15/24 15:46 11/15/24 15:47 DC 11/15/24 16:13 Vital Signs Date Time Temp Pulse Resp B/P (MAP) Pulse Ox O2 Delivery O2 Flow Rate FiO2 11/15/24 15:32 98.2 84 16 152/78 95 Room Air 0 Medical Decision Making MDM MDM: 59-YEAR-OLD FEMALE COMING IN FOR BLOOD IN STOOLS. PATIENT STATES SHE HAD A LARGE BOWEL MOVEMENT THIS MORNING, AFTER THAT SHE SAID WHEN SHE WENT TO HAVE ANOTHER BOWEL MOVEMENT SHE FEELS LIKE WATER IS COMING OUT OF THE RECTAL. PATIENT STATES IT IS BLOOD. PATIENT STATES SHE DOES HAVE A HISTORY OF HEMORRHOIDS SINCE HE IS A GI FOR THIS AND ALSO HAD A COLONOSCOPY DONE TWO YEARS AGO WHERE THEY UPON A FEW POLYPS. BLOOD WORK UNREMARKABLE. ON PHYSICAL EXAM LARGE INTERNAL HEMORRHOID NOTED, NONTHROMBOSED, ANUSOL GIVEN IN THE EMERGENCY ROOM. NO MATT BLOOD IN THE RECTAL AREA. DISCUSSED WITH THE PATIENT ABOUT FINDINGS, EDUCATED THIS COULD BE WHY SHE SAW, BLOODY WATER LIKE STOOL COMING OUT AFTER HER BM. EDUCATED PATIENT AFTER PASSING A LARGE AMOUNT OF BOWEL MOVEMENT IN A PATIENT WITH LARGE HEMORRHOIDS THIS IS NOT UNCOMMON. HOWEVER EDUCATED PATIENT SHE NEEDS TO FOLLOW UP OUTPATIENT WITH HER GI DOCTOR. AND EDUCATED HER TO RETURN TO THE HOSPITAL NEEDED. DIFFERENTIAL DIAGNOSIS: EXTERNAL HEMORRHOIDS, INTERNAL HEMORRHOIDS, GI BLEED RATIONALE: TESTS CONSIDERED AND ORDERED SECONDARY TO SHARED DECISION MAKING INCLUDE: PREVIOUS OUTSIDE RECORDS REVIEWED: OLD ER VISITS. RISK OF COMPLICATION AND/OR MORBIDITY OR MORTALITY OF PATIENT MANAGEMENT: NONE MEDICATIONS-PER MEDICATION RECONCILIATION NEED FOR HOSPITALIZATION: PATIENT DOES NOT MEET CRITERIA FOR HOSPITALIZATION. NEED FOR EMERGENCY MAJOR/MINOR SURGERY: NO THERE ARE NO SOCIAL CONCERNS WITH THIS PATIENT. PRESCRIPTION DRUG MANAGEMENT PRESCRIPTIONS WILL INCLUDE SYMPTOMATIC CARE PATIENT'S PRIOR EXTERNAL MEDICAL RECORDS FROM OTHER ER VISITS WERE REVIEWED BY ME INDICATED. PRIOR TESTING AND RESULTS FROM PREVIOUS VISITS WERE REVIEWED. PRIOR TESTS WERE TAKEN INTO ACCOUNT WITH MEDICAL DECISION MAKING AND RESOURCE UTILIZATION, INDEPENDENT HISTORIAN/HISTORIANS WERE USED TO OBTAIN COMPLETE MEDICAL HISTORY. I INDEPENDENTLY INTERPRETED THE TEST THAT WERE PERFORMED, RESULTS WERE REVIEWED BY ME AND CONSIDERED FINDINGS ON RADIOLOGY IF ORDERED. MEDICAL MANAGEMENT AND EXAMINATION INTERPRETATION DISCUSSIONS WERE HAD BY ME WITH OTHER QUALIFIED HEALTHCARE PROFESSIONALS INDICATED FOR THE PATIENT'S CARE. DX & DISP Disposition: Discharge Departure Impression: Primary Impression: Internal hemorrhoid Condition: Stable Scripts Docusate Sodium (Colace) 100 Mg Capsule 100 MG PO TID for constipation for 15 Days, #45 CAP 0 Refills Prov: KONRAD SHAW NP 11/15/24 Hydrocortisone Acetate (Anusol-Hc) 25 Mg Supp.rect 1 SUPP VT BID for 14 Days, #28 SUPP 0 Refills Prov: KONRAD SHAW NP 11/15/24 Additional Instructions: INCREASE FLUID INTAKE, TAKE COLACE NEEDED FOR CONSTIPATION. FOLLOW UP WITH YOUR GI OUTPATIENT. IF YOU HAVE ANY WORSENING SYMPTOMS PLEASE RETURN BACK TO THE EMERGENCY ROOM. Referrals: IVETT MADSEN MD (PCP) Time of Disposition: 16:33 I have reviewed the case, and I agree with, Diagnosis and Plan KONRAD SHAW NP Nov 15, 2024 16:36
[2024-11-15 16:52] VITALS: BP 135/63; PULSE 61; RESP 18; O2SAT 98
== END 2024-11-15 17:02 | disposition home or self-care (01) ==
LOC: EDH 15:31
DX: K64.8 Other hemorrhoids (principal); E78.00 Pure hypercholesterolemia, unspecified; Z79.899 Other long term (current) drug therapy
CPT/HCPCS: 36415; 80048; 85025; 99283